=== PATIENT | female | born 1955 | race Caucasian/White ===

== ENCOUNTER 2021-06-11 14:25 | Outpatient (CLI) | payer MEDICARE, OTHER, SELFPAY ==
--- NOTE | ~2021-06-11 | MM_ITS ---
EXAMINATION: MM screening [facility] BI w [place] HISTORY: Screening mammogram TECHNIQUE: Craniocaudal and mediolateral oblique 3-D tomosynthesis images were obtained and synthetic 2-D images were generated. CAD analysis was submitted and interpreted. COMPARISON: 08/09/2019, 06/28/2018, 06/26/2017 BREAST PARENCHYMAL COMPOSITION: The breasts are almost entirely fatty. FINDINGS: There is no evidence of suspicious mass, calcification, or architectural distortion to sugg est malignancy in either breast. There has been no suspicious interval change. IMPRESSION: 1. No mammographic evidence of malignancy. 2. Recommend routine screening mammography in one year. BI-RADS Category 1: Negative Reviewed, dictated and finalized at location A.
== END 2021-06-11 14:26 | disposition home or self-care (01) ==
LOC: ANHIMG 14:28
PROVIDERS: PCP Physician Assistant; Visit Provider Physician Assistant
DX: Z12.31 Encounter for screening mammogram for malignant neoplasm of breast (principal)
CPT/HCPCS: 77063; 77067

== ENCOUNTER 2022-08-08 11:02 | Outpatient (CLI) | payer MEDICARE, OTHER, SELFPAY ==
--- NOTE | ~2022-08-08 | MM_ITS ---
EXAMINATION: MM screening [facility] BI w [place] HISTORY: Screening mammogram TECHNIQUE: Craniocaudal and mediolateral oblique 3-D tomosynthesis images were obtained and synthetic 2-D images were generated. CAD analysis was submitted and interpreted. COMPARISON: 06/11/2021, 08/09/2019, 06/28/2018 BREAST PARENCHYMAL COMPOSITION: The breasts are almost entirely fatty. FINDINGS: No suspicious mass, calcification, or architectural distortion are identified in either tiffany ast to suggest malignancy. There has been no suspicious interval change. IMPRESSION: 1. No mammographic evidence of malignancy. 2. Recommend routine screening mammography in one year. BI-RADS Category 1: Negative Reviewed, dictated and finalized at location A. [employer]
== END 2022-08-08 11:03 | disposition home or self-care (01) ==
LOC: ANHIMG 11:03
PROVIDERS: PCP Physician Assistant; Visit Provider Physician Assistant
DX: Z12.31 Encounter for screening mammogram for malignant neoplasm of breast (principal)
CPT/HCPCS: 77063; 77067

== ENCOUNTER 2022-09-29 01:20 | Day surgery (SDC) | payer MEDICARE, OTHER, SELFPAY ==
[2022-09-17 12:42] VITALS: BMI 33.7
--- NOTE | 2022-09-26 11:48 | PM.HPGS ---
History of Present Illness History of Present Illness Consent: Risks, benefits, and alternatives have been discussed and questions answered. Patient agrees to proceed with procedure. Chief complaint: hx of colon polyps Narrative: Lida Rader is a 67 year old female referred for colon cancer screening. Eight years ago she had a couple of adenomas removed. Review of Systems Review of Systems: All systems reviewed & are unremarkable except as noted in HPI and below PMFSH Past Medical History Medical History Anxiety Degenerative arthritis of knee, bilateral Rheumatoid arthritis Surgical History Surgical History History of arthroscopic knee surgery meniscectomy both knees Family History Family History Mother Hypertension Social History Social History Smoking packs per day: 0.5 Smoking cigarettes per day: 10.0 Years smoked: 20 Smoking pack-years: 10.00 Smoking status: Current every day smoker Tobacco type: cigarettes Additional smoking assessment comments: SMOKED FOR 20 YEARS, QUIT FOR 25 YEARS, SMOKING AGAIN FOR LAST YEAR Alcohol intake: never Substance use: never Substance use type: does not use Living arrangements: alone Occupation/Education: retired Gender identity (if verbalized by the patient): Female Spiritual care concerns: No Meds Home Medications and Allergies Home Medications Medication Instructions Recorded Confirmed Type aspirin 81 mg chewable tablet 81 mg PO DAILY 01/08/21 09/17/22 History atorvastatin 40 mg tablet 40 mg PO DAILY 01/08/21 09/17/22 History escitalopram oxalate 20 mg tablet 20 mg PO DAILY 01/08/21 09/17/22 History etanercept 50 mg/mL (1 mL) 50 mg subcut WEEKLY 01/08/21 09/17/22 History subcutaneous syringe (Enbrel) lorazepam 0.5 mg tablet (Ativan) 0.5 mg PO BID PRN Anxiety 01/08/21 09/17/22 History omega-3 fatty acids 1,000 mg 1,000 mg PO DAILY 01/08/21 09/17/22 History capsule (Fish Oil Concentrate) vitamins A,C,S-sajl-udxjpe 14,320 1 cap PO BID 01/08/21 09/17/22 History unit-226 mg-200 unit capsule (PreserVision AREDS) zolpidem 10 mg tablet 10 mg PO DAILY 01/08/21 09/17/22 History Allergies Allergy/AdvReac Type Severity Reaction Status Date / Time No Known Allergies Allergy Unknown Verified 09/29/22 06:23 Exam Const: General: alert Orientation/consciousness: patient oriented x3 Resp: Auscultation: clear to auscultation bilaterally Cardio: Rhythm: regular rhythm GI: GI Palp: Yes Soft to palpation and No Tenderness to palpation present (GI) Neuro: General: patient oriented x3 Assessment and Plan Assessment and plan (1) Colon cancer screening: Code(s): Z12.11 - Encounter for screening for malignant neoplasm of colon Status: Acute Assessment and Plan: Colonoscopy with possible biopsy or polypectomy or cautery or injection of substances.
[2022-09-29 06:24] VITALS: BP 127/60; PULSE 100; RESP 18; TEMP 36.1; O2SAT 97
[2022-09-29] MEDS: LACTATED RINGERS 1,000 ML 150 ML IV CONT (06:35)
--- NOTE | 2022-09-29 07:25 | WPDANESEPPF ---
Anes - Initial Pre Proc Eval Procedure: Operation Date: 09/29/22 07:30 Proposed Procedures p Screening Colonoscopy - Zaki Barnhart MD Date/Time: 09/29/22 07:25 Surgeon: Zaki Barnhart MD Pre Op Diagnosis: hx of colon polyps Patient Data Age: 67 Gender: F Height: 1.68 m Weight: 97 kg Last Vital Signs Temp 97 F L 09/29/22 06:24 Pulse 100 09/29/22 06:24 Resp 18 09/29/22 06:24 BP 127/60 09/29/22 06:24 Pulse Ox 97 09/29/22 06:24 O2 Del Method Room Air 09/29/22 06:24 Allergies Allergy/AdvReac Type Severity Reaction Status Date / Time No Known Allergies Allergy Unknown Verified 09/29/22 06:23 Home Medications Medication Instructions Recorded Confirmed Type aspirin 81 mg chewable tablet 81 mg PO DAILY 01/08/21 09/17/22 History atorvastatin 40 mg tablet 40 mg PO DAILY 01/08/21 09/17/22 History escitalopram oxalate 20 mg tablet 20 mg PO DAILY 01/08/21 09/17/22 History etanercept 50 mg/mL (1 mL) 50 mg subcut WEEKLY 01/08/21 09/17/22 History subcutaneous syringe (Enbrel) lorazepam 0.5 mg tablet (Ativan) 0.5 mg PO BID PRN Anxiety 01/08/21 09/17/22 History omega-3 fatty acids 1,000 mg 1,000 mg PO DAILY 01/08/21 09/17/22 History capsule (Fish Oil Concentrate) vitamins A,C,O-llcl-nxuvuy 14,320 1 cap PO BID 01/08/21 09/17/22 History unit-226 mg-200 unit capsule (PreserVision AREDS) zolpidem 10 mg tablet 10 mg PO DAILY 01/08/21 09/17/22 History Patient hx anesthesia problems: none Family hx anesthesia problems: none Results Review: All pre-operative results and documents have been reviewed as part of the pre-operative evaluation. [facility] Past Medical History Medical History Anxiety Degenerative arthritis of knee, bilateral Rheumatoid arthritis Surgical History Surgical History History of arthroscopic knee surgery meniscectomy both knees Family History Family History Mother Hypertension Social History Social History Smoking packs per day: 0.5 Smoking cigarettes per day: 10.0 Years smoked: 20 Smoking pack-years: 10.00 Smoking status: Current every day smoker Tobacco type: cigarettes Additional smoking assessment comments: SMOKED FOR 20 YEARS, QUIT FOR 25 YEARS, SMOKING AGAIN FOR LAST YEAR Alcohol intake: never Substance use: never Substance use type: does not use Living arrangements: alone Occupation/Education: retired Gender identity (if verbalized by the patient): Female Spiritual care concerns: No Anes - Eval Final PreProcedure Day of Procedure 09/29/22 07:25 Patient weight: obese Airway: Mallampati scale class II ASA classification: III Anesthesia type and monitoring: general GIVS and standard monitoring Results Review: All pre-operative results and documents have been reviewed as part of the pre-operative evaluation. Informed Consent: The patient's anesthetic plan and its attendant risks and benefits were discussed with the patient/family/POA. Questions were solicited and answers provided to the satisfaction of the patient/family/POA.
[2022-09-29 07:53] VITALS: BP 116/61; PULSE 79; RESP 21; O2SAT 95
[2022-09-29 08:03] VITALS: BP 136/67; PULSE 81; RESP 19; O2SAT 96
[2022-09-29 08:13] VITALS: BP 120/65; PULSE 74; RESP 23; O2SAT 97
== END 2022-09-29 08:17 | disposition home or self-care (01) ==
PROVIDERS: PCP Physician Assistant; Visit Provider Internal Medicine Gastroenterology
PROC: 0DJD8ZZ Inspection of Lower Intestinal Tract, Via Natural or Artificial Opening Endoscopic (ICD-10-PCS; CPT 45378; principal; 2022-09-29 07:30)
DX: Z12.11 Encounter for screening for malignant neoplasm of colon (principal); K63.5 Polyp of colon; K57.30 Diverticulosis of large intestine without perforation or abscess without bleeding; M06.9 Rheumatoid arthritis, unspecified; F41.9 Anxiety disorder, unspecified; Z79.82 Long term (current) use of aspirin; Z79.620 Long term (current) use of immunosuppressive biologic; F17.210 Nicotine dependence, cigarettes, uncomplicated; E66.9 Obesity, unspecified; Z68.34 Body mass index [BMI] 34.0-34.9, adult
CPT/HCPCS: 45380; 88305; J2704; J7120

== ENCOUNTER 2023-08-21 14:17 | Outpatient (CLI) | payer MEDICARE, OTHER, SELFPAY ==
--- NOTE | ~2023-08-21 | MM_ITS ---
EXAMINATION: MM screening [facility] w [facility] HISTORY: Screening TECHNIQUE: Craniocaudal and mediolateral oblique 3-D tomosynthesis images were obtained and synthetic 2-D images were generated. CAD analysis was submitted and interpreted. COMPARISON: Comparison to multiple prior studies sequentially, with oldest reviewed study dated 06/07. BREAST PARENCHYMAL COMPOSITION: The breasts are almost entirely fatty. FINDINGS: There is no evidence of suspicious mass, calcification, or architectural distortion to sugg est malignancy in either breast. There has been no suspicious interval change. IMPRESSION: 1. No mammographic evidence of malignancy. 2. Recommend routine screening mammography in one year. BI-RADS Category 1: Negative Reviewed, dictated and finalized at location A. [employer]
== END 2023-08-21 14:18 | disposition home or self-care (01) ==
LOC: ANHIMG 14:19
PROVIDERS: PCP Physician Assistant; Visit Provider Physician Assistant
DX: Z12.31 Encounter for screening mammogram for malignant neoplasm of breast (principal)
CPT/HCPCS: 77063; 77067

== ENCOUNTER 2024-11-28 08:02 | Outpatient (CLI) | payer MEDICARE, OTHER, SELFPAY ==
--- NOTE | ~2024-11-28 | MM_ITS ---
EXAMINATION: MM screening [facility] BI w tavon HISTORY: Screening TECHNIQUE: Craniocaudal and mediolateral oblique 3-D tomosynthesis images were obtained and synthetic 2-D images were generated. CAD analysis was submitted and interpreted. COMPARISON: 08/21/2023 and dating back to 08/09/2019 BREAST PARENCHYMAL COMPOSITION: There are scattered areas of fibroglandular density. FINDINGS: Punctate calcifications detected bilaterally, vascular in origin and benign in appearance. Punctate and bulky calcifications are detected bilaterally, stable and benign in appearance. Stable parenchymal pattern without suspicious microcalcifications, architectural distortion, discrete masses or significant asymmetry. IMPRESSION: 1. No mammographic evidence of malignancy. 2. Recommend routine screening mammography in one year. BI-RADS Category 2: Benign finding(s). Reviewed, dictated and finalized at location A.
--- OUTSIDE RECORDS SUMMARY | 2024-11-28 08:17 | XMS_ITS | Data Portability ---
Author Organization [facility], Main Office Address [address] [place] [address] Assessment No assessment recorded. Plan of Treatment Reminders Order Date Submit Date Provider Last Modified By Organization Details Last Modified Time Details Appointments None recorded. Lab HbA1c (hemoglobi n A1c), blood 2022 023 [facility], [address], [address], [place], [address], 4 09:51:26 BMP, serum or plasma 2022 023 [facility], [address], [address], [place], [address], 4 09:51:26 hepatic function panel, serum 2022 023 [facility], [address], [address], [place], [address], 4 09:51:26 lipid panel, serum 2022 023 [facility], [address], [address], [place], [address], 4 09:51:26 Referral None recorded. Procedures None recorded. Surgeries None recorded. Imaging None recorded. Medication Orders None recorded. Patient TargetsNo targets recorded. Patient Instructions Encounter Date Encounter Id Patient Instructions Last Modified By Organization Details Last Modified Time 05/21/2023 [id number] [email or web address] Not available 05/21 13:21:14 Reason for Referral None Reported. Results Created Date Observation Date Name Description Value Unit Range Abnormal Flag Note LastModifiedBy Organization Detail LastModifiedTime 08/05/20 21 08/06/2021 CBC (INCL UDES DIFF/ PLT) white blood cell count 12.2 thous and/u L 3.8-10 .8 high Not Available [address], [address], 08/06/2021 06:14:16 08/05/2008/06/2021 CBC (INCL UDES DIFF/ PLT) red blood cell count 4.35 maite on/uL 3.80-5 .10 normal Not Available [address], [address], 08/06/2021 06:14:16 08/05/2008/06/2021 CBC (INCL UDES DIFF/ PLT) hemoglobin 14.3 g/dL 11.7-1 5.5 normal Not Available [address], [address], 08/06/2021 06:14:16 08/05/2008/06/2021 CBC (INCL UDES DIFF/ PLT) hematocrit 43.2 % 35.0-4 5.0 normal Not Available [address], [address], 08/06/2021 06:14:16 08/05/2008/06/2021 CBC (INCL UDES DIFF/ PLT) MCV 99.3 fL 80.0-1 00.0 normal Not Available [address], [address], 08/06/2021 06:14:16 08/05/2008/06/2021 CBC (INCL UDES DIFF/ PLT) MCH 32.9 pg 27.0-3 3.0 normal Not Available [facility] [address], [address], 08/06/2021 06:14:16 08/05/20 21 08/06/2021 CBC (INCL UDES DIFF/ PLT) MCHC 33.1 g/dL 32.0-3 6.0 normal Not Available [address], [address], 08/06/2021 06:14:16 08/05/20 21 08/06/2021 CBC (INCL UDES DIFF/ PLT) RDW 12.3 % 11.0-1 5.0 normal Not Available [address], [address], 08/06/2021 06:14:16 08/05/20 21 08/06/2021 CBC (INCL UDES DIFF/ PLT) platelet count 241 thous and/u L 140-40 0 normal Not Available [address], [address], 08/06/2021 06:14:16 08/05/20 21 08/06/2021 CBC (INCL UDES DIFF/ PLT) MPV 10.9 fL 7.5-12 .5 normal Not Available [address], [address], 08/06/2021 06:14:16 08/05/20 21 08/06/2021 CBC (INCL UDES DIFF/ PLT) absolute neutrophils 6417 cells /uL 1500-7 800 normal Not Available [address], [address], 08/06/2021 06:14:16 08/05/20 21 08/06/2021 CBC (INCL UDES DIFF/ PLT) absolute lymphocytes 4575 cells /uL 850-39 00 high Not Available [address], [address], 08/06/2021 06:14:16 08/05/20 21 08/06/2021 CBC (INCL UDES DIFF/ PLT) absolute monocytes 817 cells /uL 200-95 0 normal Not Available [address], [place], [address], 08/06/2021 06:14:16 08/05/20 21 08/06/2021 CBC (INCL UDES DIFF/ PLT) absolute eosinophils 329 cells /uL 15-500 normal Not Available [facility] [address], [address], 08/06/2021 06:14:16 08/05/20 21 08/06/2021 CBC (INCL UDES DIFF/ PLT) absolute basophils 61 cells /uL 0-200 normal Not Available [facility] [address], [address], 08/06/2021 06:14:16 08/05/20 21 08/06/2021 CBC (INCL UDES DIFF/ PLT) neutrophils 52.6 % normal Not Available [facility] [address], [address], 08/06/2021 06:14:16 08/05/20 21 08/06/2021 CBC (INCL UDES DIFF/ PLT) lymphocytes 37.5 % normal Not Available [facility] [address], [address], 08/06/2021 06:14:16 08/05/20 21 08/06/2021 CBC (INCL UDES DIFF/ PLT) monocytes 6.7 % normal Not Available [facility] [address], [address], 08/06/2021 06:14:16 08/05/20 21 08/06/2021 CBC (INCL UDES DIFF/ PLT) eosinophils 2.7 % normal Not Available [facility] [address], [address], 08/06/2021 06:14:16 08/05/20 21 08/06/2021 CBC (INCL UDES DIFF/ PLT) basophils 0.5 % normal Not Available [address], [address], 08/06/2021 06:14:16 08/05/20 21 08/06/2021 HEPAT IC FUNCT ION PANEL protein, total 7.2 g/dL 6.1-8. 1 normal Not Available [address], [address], 08/06/2021 06:14:15 08/05/20 21 08/06/2021 HEPAT IC FUNCT ION PANEL albumin 4.0 g/dL 3.6-5. 1 normal Not Available [address], [address], 08/06/2021 06:14:15 08/05/20 21 08/06/2021 HEPAT IC FUNCT ION PANEL globulin 3.2 g/dL_ (calc ) 1.9-3. 7 normal Not Available [address], [address], 08/06/2021 06:14:15 08/05/20 21 08/06/2021 HEPAT IC FUNCT ION PANEL albumin/glob ulin ratio 1.3 (calc ) 1.0-2. 5 normal Not Available [address], [address], 08/06/2021 06:14:15 08/05/20 21 08/06/2021 HEPAT IC FUNCT ION PANEL bilirubin, total 0.8 mg/dL 0.2-1. 2 normal Not Available [address], [address], 08/06/2021 06:14:15 08/05/20 21 08/06/2021 HEPAT IC FUNCT ION PANEL bilirubin, direct 0.2 mg/dL < or = 0.2 normal Not Available [address], [address], 08/06/2021 06:14:15 08/05/20 21 08/06/2021 HEPAT IC FUNCT ION PANEL bilirubin, indirect 0.6 mg/dL _(brittany c) 0.2-1. 2 normal Not Available [facility] [employer] [address] [address] [place], [address], 08/06/2021 06:14:15 08/05/20 21 08/06/2021 HEPAT IC FUNCT ION PANEL alkaline phosphatase 86 U/L 37-153 normal Not Available [facility] [employer] [address] [address] [place], [address], 08/06/2021 06:14:15 08/05/20 21 08/06/2021 HEPAT IC FUNCT ION PANEL AST 17 U/L 10-35 normal Not Available [address], [address], 08/06/2021 06:14:15 08/05/20 21 08/06/2021 HEPAT IC FUNCT ION PANEL ALT 19 U/L 6-29 normal Not Available [address] [address] [place], [address], 08/06/2021 06:14:15 08/05/20 21 08/06/2021 HEMOG LOBIN A1C hemoglobin A1C 6.1 %_of_ total _HGB <5.7 high Not Available [facility] [employer] [address] [address] [place], [address], 08/06/2021 06:14:15 08/05/20 21 08/06/2021 BASIC METAB OLIC PANEL glucose 126 mg/dL 65-99 high Fasti ng refer ence inter davie For someo ne witho ut known diabe rocío, a gluco se value >125 mg/dL indic ates that they may have diabe rocío and this shoul d be confi rmed with a follo w-up test. Not Available [facility] [address] [address] [place], [address], 08/06/2021 06:14:14 08/05/20 21 08/06/2021 BASIC METAB OLIC PANEL urea nitrogen (BUN) 18 mg/dL 7-25 normal Not Available [address], [address], 08/06/2021 06:14:14 08/05/20 21 08/06/2021 BASIC METAB OLIC PANEL creatinine 0.68 mg/dL 0.50-0 .99 normal For patie nts >49 years of age, the refer ence limit for Creat inine is appro ximat aggie 13% highe r for peopl e ident ified as Afric an-Am ermias n. Not Available [address], [address], 08/06/2021 06:14:14 08/05/20 21 08/06/2021 BASIC METAB OLIC PANEL eGFR non-afr. russian 91 mL/mi n/1.7 3m2 > or = 60 normal Not Available [address], [address], 08/06/2021 06:14:14 08/05/20 21 08/06/2021 BASIC METAB OLIC PANEL eGFR 105 mL/mi n/1.7 3m2 > or = 60 normal Not Available [address], [address], 08/06/2021 06:14:14 08/05/20 21 08/06/2021 BASIC METAB OLIC PANEL BUN/creatini ne ratio not applic able (calc ) 6-22 Not Available [address], [address], 08/06/2021 06:14:14 08/05/20 21 08/06/2021 BASIC METAB OLIC PANEL sodium 142 mmol/ L 135-14 6 normal Not Available [address] [address] [place], [address], 08/06/2021 06:14:14 08/05/20 21 08/06/2021 BASIC METAB OLIC PANEL potassium 4.3 mmol/ L 3.5-5. 3 normal Not Available [address], [address], 08/06/2021 06:14:14 08/05/20 21 08/06/2021 BASIC METAB OLIC PANEL chloride 106 mmol/ L 98-110 normal Verif ied by repea t rosa isela sis. Not Available [address], [address], 08/06/2021 06:14:14 08/05/20 21 08/06/2021 BASIC METAB OLIC PANEL carbon dioxide 25 mmol/ L 20-32 normal Not Available [address], [address], 08/06/2021 06:14:14 08/05/20 21 08/06/2021 BASIC METAB OLIC PANEL calcium 9.0 mg/dL 8.6-10 .4 normal Not Available [address], [address], 08/06/2021 06:14:14 08/05/20 21 08/06/2021 LIPID PANEL WITH RATIO S cholesterol, total 139 mg/dL <200 normal Not Available [address], [address], 08/06/2021 06:14:14 08/05/20 21 08/06/2021 LIPID PANEL WITH RATIO S HDL cholesterol 40 mg/dL > or = 50 low Not Available [address], [address], 08/06/2021 06:14:14 08/05/20 21 08/06/2021 LIPID PANEL WITH RATIO S triglyceride s 186 mg/dL <150 high Not Available [address], [address], 08/06/2021 06:14:14 08/05/20 21 08/06/2021 LIPID PANEL WITH RATIO S LDL-choleste rol 74 mg/dL _(brittany c) normal Refer ence range : <100 Semaj able range <100 mg/dL for prima ry preve ntion ; <70 mg/dL for patie nts with CHD or diabe tic patie nts with > or = 2 CHD risk facto rs. LDL-C is now calcu lated using the Tasha n-Hop kins calcu michael n, which is a valid ated novel toryo heather mathewste r accur acy than the Fried eleno equat ion in the estim ation of LDL-C . Tasha wetzel SS et al. MARK. 2013; 310(1 9): 2061- 2068 (http ://ed ucati on.Qu jrYouNoodle. Enteye/f aq/FA Q164) Not Available [facility] [address] [place], [address], 08/06/2021 06:14:14 08/05/20 21 08/06/2021 LIPID PANEL WITH RATIO S chol/HDLC ratio 3.5 (calc ) <5.0 normal Not Available [facility] [address] [address] [place], [address], 08/06/2021 06:14:14 08/05/20 21 08/06/2021 LIPID PANEL WITH RATIO S LDL/HDL ratio 1.9 (calc ) Below avera ge Risk: <2.34 Posen ge Risk: 2.35- 4.12 Moder ate Risk: 4.13- 5.56 High Risk: >5.[address] [facility] [address] [place], [address], 08/06/2021 06:14:14 08/05/20 21 08/06/2021 LIPID PANEL WITH RATIO S non HDL cholesterol 99 mg/dL _(brittany c) <130 normal For patie nts with diabe rocío plus 1 major ASCVD risk facto r, treat ing to a non-H DL-C goal of <100 mg/dL (LDL- C of <70 mg/dL ) is consi isaac a lesvia pejose manuel c optio n. Not Available [address], [address], 08/06/2021 06:14:14 08/05/2008/06/2021 TSH+F REE T4 TSH 2.91 mIU/L 0.40-4 .50 normal Not Available [address], [address], 08/06/2021 06:14:13 08/05/20 21 08/06/2021 TSH+F REE T4 T4, free 1.0 NG/dL 0.8-1. 8 normal Not Available [facility] [address], [address], 08/06/2021 06:14:13 06/20/20 22 06/21/2022 CBC (INCL UDES DIFF/ PLT) white blood cell count 13.2 thous and/u L 3.8-10 .8 high Not Available [address], [address], 06/21/2022 08:32:22 06/20/20 22 06/21/2022 CBC (INCL UDES DIFF/ PLT) red blood cell count 4.44 maite on/uL 3.80-5 .10 normal Not Available [address], [address], 06/21/2022 08:32:22 06/20/20 22 06/21/2022 CBC (INCL UDES DIFF/ PLT) hemoglobin 15.1 g/dL 11.7-1 5.5 normal Not Available [address], [address], 06/21/2022 08:32:22 06/20/20 22 06/21/2022 CBC (INCL UDES DIFF/ PLT) hematocrit 45.1 % 35.0-4 5.0 high Not Available [address], [address], 06/21/2022 08:32:22 06/20/20 22 06/21/2022 CBC (INCL UDES DIFF/ PLT) MCV 101.6 fL 80.0-1 00.0 high Not Available [address], [address], 06/21/2022 08:32:22 06/20/20 22 06/21/2022 CBC (INCL UDES DIFF/ PLT) MCH 34.0 pg 27.0-3 3.0 high Not Available [address], [address], 06/21/2022 08:32:22 06/20/2006/21/2022 CBC (INCL UDES DIFF/ PLT) MCHC 33.5 g/dL 32.0-3 6.0 normal Not Available [address], [address], 06/21/2022 08:32:22 06/20/20 22 06/21/2022 CBC (INCL UDES DIFF/ PLT) RDW 12.6 % 11.0-1 5.0 normal Not Available [address], [address], 06/21/2022 08:32:22 06/20/20 22 06/21/2022 CBC (INCL UDES DIFF/ PLT) platelet count 233 thous and/u L 140-40 0 normal Not Available [address], [address], 06/21/2022 08:32:22 06/20/20 22 06/21/2022 CBC (INCL UDES DIFF/ PLT) MPV 10.4 fL 7.5-12 .5 normal Not Available [address], [address], 06/21/2022 08:32:22 06/20/20 22 06/21/2022 CBC (INCL UDES DIFF/ PLT) absolute neutrophils 6877 cells /uL 1500-7 800 normal Not Available [address], [address], 06/21/2022 08:32:22 06/20/2006/21/2022 CBC (INCL UDES DIFF/ PLT) absolute lymphocytes 5108 cells /uL 850-39 00 high Not Available [address], [address], 06/21/2022 08:32:22 06/20/2006/21/2022 CBC (INCL UDES DIFF/ PLT) absolute monocytes 937 cells /uL 200-95 0 normal Not Available [address], [address], 06/21/2022 08:32:22 06/20/2006/21/2022 CBC (INCL UDES DIFF/ PLT) absolute eosinophils 211 cells /uL 15-500 normal Not Available [address], [address], 06/21/2022 08:32:22 06/20/2006/21/2022 CBC (INCL UDES DIFF/ PLT) absolute basophils 66 cells /uL 0-200 normal Not Available [address], [address], 06/21/2022 08:32:22 06/20/2006/21/2022 CBC (INCL UDES DIFF/ PLT) neutrophils 52.1 % normal Not Available [address], [address], 06/21/2022 08:32:22 06/20/2006/21/2022 CBC (INCL UDES DIFF/ PLT) lymphocytes 38.7 % normal Not Available [address], [address], 06/21/2022 08:32:22 06/20/2006/21/2022 CBC (INCL UDES DIFF/ PLT) monocytes 7.1 % normal Not Available [address], [address], 06/21/2022 08:32:22 06/20/20 22 06/21/2022 CBC (INCL UDES DIFF/ PLT) eosinophils 1.6 % normal Not Available [address], [address], 06/21/2022 08:32:22 06/20/20 22 06/21/2022 CBC (INCL UDES DIFF/ PLT) basophils 0.5 % normal Not Available [address], [address], 06/21/2022 08:32:22 06/20/20 22 06/21/2022 HEPAT IC FUNCT ION PANEL protein, total 7.1 g/dL 6.1-8. 1 normal Not Available [address], [address], 06/21/2022 08:32:21 06/20/20 22 06/21/2022 HEPAT IC FUNCT ION PANEL albumin 4.3 g/dL 3.6-5. 1 normal Not Available [address], [address], 06/21/2022 08:32:21 06/20/20 22 06/21/2022 HEPAT IC FUNCT ION PANEL globulin 2.8 g/dL_ (calc ) 1.9-3. 7 normal Not Available [address], [address], 06/21/2022 08:32:21 06/20/20 22 06/21/2022 HEPAT IC FUNCT ION PANEL albumin/glob ulin ratio 1.5 (calc ) 1.0-2. 5 normal Not Available [address], [address], 06/21/2022 08:32:21 06/20/20 22 06/21/2022 HEPAT IC FUNCT ION PANEL bilirubin, total 0.8 mg/dL 0.2-1. 2 normal Not Available [address], [address], 06/21/2022 08:32:21 06/20/20 22 06/21/2022 HEPAT IC FUNCT ION PANEL bilirubin, direct 0.2 mg/dL < or = 0.2 normal Not Available [address], [address], 06/21/2022 08:32:21 06/20/20 22 06/21/2022 HEPAT IC FUNCT ION PANEL bilirubin, indirect 0.6 mg/dL _(brittany c) 0.2-1. 2 normal Not Available [address], [address], 06/21/2022 08:32:21 06/20/20 22 06/21/2022 HEPAT IC FUNCT ION PANEL alkaline phosphatase 80 U/L 37-153 normal Not Available [facility] [address], [address], 06/21/2022 08:32:21 06/20/20 22 06/21/2022 HEPAT IC FUNCT ION PANEL AST 22 U/L 10-35 normal Not Available [address], [address], 06/21/2022 08:32:21 06/20/20 22 06/21/2022 HEPAT IC FUNCT ION PANEL ALT 24 U/L 6-29 normal Not Available [address], [address], 06/21/2022 08:32:21 06/20/20 22 06/21/2022 HEMOG LOBIN A1C hemoglobin A1C 6.0 %_of_ total _HGB <5.7 high For someo ne witho ut known diabe rocío, a hemog lobin A1c value betwe en 5.7% and 6.4% is consi stent with predi abete s and shoul d be confi rmed with a follo w-up test. For someo ne with known diabe rocío, a value <7% indic ates that their diabe rocío is well contr olled . A1c targe ts shoul d be indiv idual ized based on durat ion of diabe rocío, age, comor bid condi tions , and other consi derat ions. This assay resul t is consi stent with an incre ased risk of diabe rocío. Curre ntly, no conse nsus exist s regar ding use of hemog lobin A1c for diagn osis of diabe rocío for child jose manuel. Not Available [facility] [address] [address] [place], [address], 06/21/2022 08:32:21 06/20/2006/21/2022 BASIC METAB OLIC PANEL glucose 105 mg/dL 65-99 high Fasti ng refer ence inter davie For someo ne witho ut known diabe rocío, a gluco se value betwe en 100 and 125 mg/dL is consi stent with predi abete s and shoul d be confi rmed with a follo w-up test. Not Available [facility] [address] [address] [place], [address], 06/21/2022 08:32:20 06/20/2006/21/2022 BASIC METAB OLIC PANEL urea nitrogen (BUN) 18 mg/dL 7-25 normal Not Available [facility] [address] [address] [place], [address], 06/21/2022 08:32:20 06/20/2006/21/2022 BASIC METAB OLIC PANEL creatinine 0.63 mg/dL 0.50-1 .05 normal Not Available [facility] [address] [address] [place], [address], 06/21/2022 08:32:20 06/20/2006/21/2022 BASIC METAB OLIC PANEL eGFR 97 mL/mi n/1.7 3m2 > or = 60 normal The eGFR is based on the CKD-E PI 2020 equat ion. To calcu late the new eGFR from a previ ous Creat inine or Cysta jayda C resul t, go to https ://aki goldman.raf johnson.o lalito/pr ofess ional s/ kdoqi /gfr% 5Fcal culat or Not Available [address] [address] [place], [address], 06/21/2022 08:32:20 06/20/20 22 06/21/2022 BASIC METAB OLIC PANEL BUN/creatini ne ratio not applic able (calc ) 6-22 Not Available [address] [place], [address], 06/21/2022 08:32:20 06/20/20 22 06/21/2022 BASIC METAB OLIC PANEL sodium 143 mmol/ L 135-14 6 normal Not Available [address] [address] [place], [address], 06/21/2022 08:32:20 06/20/20 22 06/21/2022 BASIC METAB OLIC PANEL potassium 4.3 mmol/ L 3.5-5. 3 normal Not Available [address] [address] [place], [address], 06/21/2022 08:32:20 06/20/20 22 06/21/2022 BASIC METAB OLIC PANEL chloride 107 mmol/ L 98-110 normal Not Available [address] [address] [place], [address], 06/21/2022 08:32:20 06/20/2006/21/2022 BASIC METAB OLIC PANEL carbon dioxide 29 mmol/ L 20-32 normal Not Available [address] [address] [place], [address], 06/21/2022 08:32:20 06/20/20 22 06/21/2022 BASIC METAB OLIC PANEL calcium 9.3 mg/dL 8.6-10 .4 normal Not Available [address] [address] [place], [address], 06/21/2022 08:32:20 06/20/20 22 06/21/2022 LIPID PANEL WITH RATIO S cholesterol, total 116 mg/dL <200 normal Not Available [address] [address] [place], [address], 06/21/2022 08:32:20 06/20/20 22 06/21/2022 LIPID PANEL WITH RATIO S HDL cholesterol 38 mg/dL > or = 50 low Not Available [address] [address] [place], [address], 06/21/2022 08:32:20 06/20/20 22 06/21/2022 LIPID PANEL WITH RATIO S triglyceride s 122 mg/dL <150 normal Not Available [address] [address] [place], [address], 06/21/2022 08:32:20 06/20/2006/21/2022 LIPID PANEL WITH RATIO S LDL-choleste rol 58 mg/dL _(brittany c) normal Refer ence range : <100 Semaj able range <100 mg/dL for prima ry preve ntion ; <70 mg/dL for patie nts with CHD or diabe tic patie nts with > or = 2 CHD risk facto rs. LDL-C is now calcu lated using the Tasha n-Hop kins calcu latdarcy n, which is a valid ated novel metho d provi ding surendra r accur acy than the Fried eleno equat ion in the estim ation of LDL-C . Tasha wetzel SS et al. MARK. 2013; 310(1 9): 2061- 2068 (http ://ed ucati on.Qu estDi prasanth tics. com/f aq/FA Q164) Not Available [facility] [address] [address] [place], [address], 06/21/2022 08:32:20 06/20/20 22 06/21/2022 LIPID PANEL WITH RATIO S chol/HDLC ratio 3.1 (calc ) <5.0 normal Not Available [address], [address], 06/21/2022 08:32:20 06/20/20 22 06/21/2022 LIPID PANEL WITH RATIO S LDL/HDL ratio 1.5 (calc ) Below avera ge Risk: <2.34 Posen ge Risk: 2.35- 4.12 Moder ate Risk: 4.13- 5.56 High Risk: >5.57 Not Available [address], [address], 06/21/2022 08:32:20 06/20/2006/21/2022 LIPID PANEL WITH RATIO S non HDL cholesterol 78 mg/dL _(brittany c) <130 normal For patie nts with diabe rocío plus 1 major ASCVD risk facto r, treat ing to a non-H DL-C goal of <100 mg/dL (LDL- C of <70 mg/dL ) is consi dered a thera peuti c optio n. Not Available [address], [address], 06/21/2022 08:32:20 06/20/2006/21/2022 TSH+F REE T4 TSH 1.30 mIU/L 0.40-4 .50 normal Not Available [address] [place], [address], 06/21/2022 08:32:19 06/20/2006/21/2022 TSH+F REE T4 T4, free 1.1 NG/dL 0.8-1. 8 normal Not Available [address], [address], 06/21/2022 08:32:19 02/12/20 24 02/12/2024 LIPID PANEL WITH RATIO S cholesterol, total 129 mg/dL <200 normal Not Available [facility] [address] [place], [address], 02/12/2024 22:22:36 02/12/20 24 02/12/2024 LIPID PANEL WITH RATIO S HDL cholesterol 41 mg/dL > or = 50 low Not Available [facility] [address] [place], [address], 02/12/2024 22:22:36 02/12/20 24 02/12/2024 LIPID PANEL WITH RATIO S triglyceride s 112 mg/dL <150 normal Not Available [facility] [address] [address] [place], [address], 02/12/2024 22:22:36 02/12/20 24 02/12/2024 LIPID PANEL WITH RATIO S LDL-choleste rol 68 mg/dL _(brittany c) normal Refer ence range : <100 Semaj able range <100 mg/dL for prima ry preve ntion ; <70 mg/dL for patie nts with CHD or diabe tic patie nts with > or = 2 CHD risk facto rs. LDL-C is now calcu lated using the Tasha wetzel-Hop oxana rodriguez n, which is a valid ated novel angela magana accur acy than the Fried eleno equat ion in the estim ation of LDL-C . Tasha wetzel SS et al. MARK. 2013; 310(1 9): 2061- 2068 (http ://ed ucati on.Qu Darryn rader tics. com/f aq/FA Q164) Not Available [facility] [address] [address], [place], [address], 02/12/2024 22:22:36 02/12/20 24 02/12/2024 LIPID PANEL WITH RATIO S chol/HDLC ratio 3.1 (calc ) <5.0 normal Not Available [facility] [address] [place], [address], 02/12/2024 22:22:36 02/12/20 24 02/12/2024 LIPID PANEL WITH RATIO S LDL/HDL ratio 1.7 (calc ) Below avera ge Risk: <2.34 Posen ge Risk: 2.35- 4.12 Moder ate Risk: 4.13- 5.56 High Risk: >5.57 Not Available [facility] [address] [address] [place], [address], 02/12/2024 22:22:36 02/12/20 24 02/12/2024 LIPID PANEL WITH RATIO S non HDL cholesterol 88 mg/dL _(brittany c) <130 normal For patie nts with diabe rocío plus 1 major ASCVD risk facto r, treat ing to a non-H DL-C goal of <100 mg/dL (LDL- C of <70 mg/dL ) is heidi mclaughlin c optio n. Not Available [facility] [address] [place], [address], 02/12/2024 22:22:36 02/12/20 24 02/12/2024 BASIC METAB OLIC PANEL glucose 126 mg/dL 65-99 high Fasti ng refer ence inter davie For someo ne witho ut known diabe rocío, a gluco se value >125 mg/dL indic ates that they may have diabe rocío and this shoul d be confi rmed with a follo w-up test. Not Available [facility] [address] [address] [place], [address], 02/12/2024 22:22:38 02/12/20 24 02/12/2024 BASIC METAB OLIC PANEL urea nitrogen (BUN) 22 mg/dL 7-25 normal Not Available [facility] [address] [address] [place], [address], 02/12/2024 22:22:38 02/12/20 24 02/12/2024 BASIC METAB OLIC PANEL creatinine 0.58 mg/dL 0.50-1 .05 normal Not Available [facility] [address] [address] [place], [address], 02/12/2024 22:22:38 02/12/20 24 02/12/2024 BASIC METAB OLIC PANEL eGFR 98 mL/mi n/1.7 3m2 > or = 60 normal Not Available [address], [address], 02/12/2024 22:22:38 02/12/20 24 02/12/2024 BASIC METAB OLIC PANEL BUN/creatini ne ratio SEE NOTE: (calc ) 6-22 Not Repor reece: BUN and Creat inine are withi n refer ence range . Not Available [address], [address], 02/12/2024 22:22:38 02/12/20 24 02/12/2024 BASIC METAB OLIC PANEL sodium 139 mmol/ L 135-14 6 normal Not Available [address], [address], 02/12/2024 22:22:38 02/12/20 24 02/12/2024 BASIC METAB OLIC PANEL potassium 4.1 mmol/ L 3.5-5. 3 normal Not Available [address], [address], 02/12/2024 22:22:38 02/12/20 24 02/12/2024 BASIC METAB OLIC PANEL chloride 105 mmol/ L 98-110 normal Not Available [address], [address], 02/12/2024 22:22:38 02/12/20 24 02/12/2024 BASIC METAB OLIC PANEL carbon dioxide 27 mmol/ L 20-32 normal Not Available [address], [address], 02/12/2024 22:22:38 02/12/20 24 02/12/2024 BASIC METAB OLIC PANEL calcium 9.1 mg/dL 8.6-10 .4 normal Not Available [address] [address] [place], [address], 02/12/2024 22:22:38 02/12/20 24 02/12/2024 HEMOG LOBIN A1C hemoglobin A1C 6.3 %_of_ total _HGB <5.7 high For someo ne witho ut known diabe rocío, a hemog lobin A1c value betwe en 5.7% and 6.4% is consi stent with predi abete s and shoul d be confi rmed with a follo w-up test. For someo ne with known diabe rocío, a value <7% indic ates that their diabe rocío is well contr olled . A1c targe ts shoul d be indiv idual ized based on durat ion of diabe rocío, age, comor bid condi tions , and other consi derat ions. This assay resul t is consi stent with an incre ased risk of diabe rocío. Curre ntly, no conse nsus exist s regar ding use of hemog lobin A1c for diagn osis of diabe rocío for child jose manuel. This test was perfo rmed on the Shaheed enzo c503 platf orm. Effec tive , a faye e in test platf orms from the [facility] t[facility] to the Shaheed enzo c503 may have shift ed HbA1c resul ts lisha red to histo rical resul ts. Based on labor atory valid ation testi ng condu cted at [facility] , the [facility]heed platf orm relat gabriel to the [employer] platf orm had an avera ge incre ase in HbA1c value of < or = 0.3%. This diffe rence is withi n accep reece varia bilit y estab lishe d by the Natio nal [employer] hemog lobin Stand ardiz ation Progr am. Note that not all indiv idual s will have had a shift in their resul ts and direc t lisha rison s betwe en histo rical and curre nt resul ts for testi ng condu cted on diffe rent platf orms is not recom lennie d. Not Available [facility] [address] [place] [address], [address], 02/12/2024 22:22:39 02/12/20 24 02/12/2024 HEPAT IC FUNCT ION PANEL protein, total 6.8 g/dL 6.1-8. 1 normal Not Available [address], [address], 02/12/2024 22:22:40 02/12/20 24 02/12/2024 HEPAT IC FUNCT ION PANEL albumin 4.0 g/dL 3.6-5. 1 normal Not Available [address], [address], 02/12/2024 22:22:40 02/12/20 24 02/12/2024 HEPAT IC FUNCT ION PANEL globulin 2.8 g/dL_ (calc ) 1.9-3. 7 normal Not Available [address], [address], 02/12/2024 22:22:40 02/12/20 24 02/12/2024 HEPAT IC FUNCT ION PANEL albumin/glob ulin ratio 1.4 (calc ) 1.0-2. 5 normal Not Available [address], [address], 02/12/2024 22:22:40 02/12/20 24 02/12/2024 HEPAT IC FUNCT ION PANEL bilirubin, total 0.8 mg/dL 0.2-1. 2 normal Not Available [address], [address], 02/12/2024 22:22:40 02/12/20 24 02/12/2024 HEPAT IC FUNCT ION PANEL bilirubin, direct 0.2 mg/dL < or = 0.2 normal Not Available [address], [address], 02/12/2024 22:22:40 02/12/20 24 02/12/2024 HEPAT IC FUNCT ION PANEL bilirubin, indirect 0.6 mg/dL _(brittany c) 0.2-1. 2 normal Not Available [address] [address] [place], [address], 02/12/2024 22:22:40 02/12/20 24 02/12/2024 HEPAT IC FUNCT ION PANEL alkaline phosphatase 77 U/L 37-153 normal Not Available [address] [address] [place], [address], 02/12/2024 22:22:40 02/12/20 24 02/12/2024 HEPAT IC FUNCT ION PANEL AST 15 U/L 10-35 normal Not Available [address] [address] [place], [address], 02/12/2024 22:22:40 02/12/20 24 02/12/2024 HEPAT IC FUNCT ION PANEL ALT 19 U/L 6-29 normal Not Available [address] [address] [place], [address], 02/12/2024 22:22:40 06/18/20 21 06/11/2021 MAMMO , scree leonidas, digit al, bilat eral No observ ation record ed. [id number] [facility] (Medical Records) [address] [facility] [address] [place] [address], [address], 11/05/2022 17:31:13 12/04/19 23 08/08/2022 MAMMO , elijah freyg, digit al, bilat eral No observ ation record ed. [email or web address] [place] [address] Rad[address] [facility], [place], [address], 12/04/2022 15:32:16 01/24/20 23 09/29/2022 colon oscop y scremakenna freyg (PROC ) No observ ation record ed. [email or web address] [facility] (Medical Records) [address] [facility] [address] [place] [address], [address], 05/26/2023 17:49:59 08/24/20 23 08/21/2023 MAMMO , scree leonidas, melanie al, bilat eral No observ ation record ed. [facility] [address], [place], [address], 09/22/2023 09:21:18 Result Notes None recorded. Problems Name Problem SNOMED Code Status Onset Date Resolution Date Notes Provider Name and Address Organization Details Recorded Time Leukocytosis 248721344 Active 2021 Not Available [facility] 4 17:46:30 Blood glucose outside reference range 477287753 Active Not Available [facility] 4 17:46:30 Insomnia 491478939 Active Not Available [facility] 4 17:46:30 Anxiety 21122075 Active Not Available [facility] 4 17:46:30 Hyperlipidemi a 15126837 Active Not Available [facility] 4 17:46:30 Rheumatoid arthritis 36088079 Active Not Available [facility] 4 17:46:30 Mild major depression 22601869 Active Not Available [facility] 4 17:46:30 Impaired glucose tolerance 9000085 Active 2021 Not Available [facility] 4 17:46:30 Acute urinary tract infection 376602875 Active 2022 Not Available [facility] 4 17:46:30 Psoriasis 0393780 Active 2022 Not Available [facility] 4 17:46:30 Problem Notes None recorded. Procedures Surgical History Date Name Laterality Status Provider Name and Address Organization Details Recorded Time Hernia Repair completed Not Available [facility] 11/05/2022 17:28:46 Orthopedic Surgery completed Not Available [facility] 11/05/2022 17:28:46 Imaging Results Imaging Date Name Status LastModified by Organiz ation Details LastModified Time 06/11/2021 MAMMO, screening, digital, bilateral completed [id number] [facility] (Medical Records) [address] [facility] [address], [place], [address], 11/05/2022 17:31:13 08/08/2022 MAMMO, screening, digital, bilateral completed [address] Radiology [address], [place], [address], 12/04/2022 15:32:16 09/29/2022 colonoscopy screening (PROC) completed [address] (Medical Records) [address] [facility] [address], [place], [address], 05/26/2023 17:49:59 08/21/2023 MAMMO, screening, digital, bilateral completed [address] [facility] [address], [place], [address], 09/22/2023 09:21:18 Procedure Notes None recorded. Medical Equipment None Reported. Allergies No known drug allergies Medications Name Sig Start Date Stop Date Status Note LastModified by Organization Details LastModified Time atorvastati n 40 mg tablet TAKE 1 TABLET DAILY 2023 active Not Available Not Available Not Avai lable Ceftin 500 mg tablet Take 1 tablet every 12 hours by oral route. active Not Available Not Available No t Available Macrobid 100 mg capsule Take 1 capsule every 12 hours by oral route. 05/21 completed Not Available Not Available Not Available amoxicillin 875 mg tablet TAKE 1 TABLET BY MOUTH TWICE DAILY UNTIL ALL TAKEN 07/14 completed Not Available Not Available Not Available betamethaso ne dipropionat e 0.05 % topical cream APPLY THIN LAYER TO AFFECTED AREA(S) TOPICALLY ONCE DAILY NEEDED active Not Available Not Available No t Available Ativan 0.5 mg tablet TAKE 1 TABLET TWICE A DAY NEEDED active Not Available Not Available No t Available zolpidem 10 mg tablet TAKE 1 TABLET AT BEDTIME active Not Available Not Available No t Available amoxicillin 875 mg-potassiu m clavulanate 125 mg tablet Take 1 tablet every 12 hours by oral route. 12/17 completed Not Available Not Available Not Available escitalopra m 20 mg tablet TAKE 1 TABLET DAILY active Not Available Not Available No t Available Fish Oil 1200mg daily 2014 active Not Available Not Available Not Avai lable Enbrel SureClick 50 mg/mL (1 mL) subcutaneou s pen injector Inject every week by sub-q route for 84 days. active Not Available Not Available No t Available Vitals Date Recorded Body mass index (BMI) Body height Oxygen saturation Oxygen saturation in Arterial blood by Pulse oximetry Heart rate Body temperature Body weight Systolic blood pressure Diastolic blood pressure Systolic blood pressure Diastolic blood pressure Provider Name and Address Organization Details Last Updated DateTime 1 35.4 kg/m2 167.64 cm 96 % 96 % 81 /min 97.8 [degF] 86898.8 8 g 120 mm[Hg] 70 mm[Hg] 110 mm[Hg] 80 mm[Hg] Not Available [facility] 3 17:29:22 Date Recorded Body mass index (BMI) Body height Oxygen saturation Oxygen saturation in Arterial blood by Pulse oximetry Heart rate Body temperature Body weight Systolic blood pressure Diastolic blood pressure Provider Name and Address Organization Details Last Updated DateTime 1 35.1 kg/m2 167.64 cm 96 % 96 % 98 /min 97.2 [degF] 13940.2 6 g 122 mm[Hg] 70 mm[Hg] Not Available [facility] 3 17:29:22 Date Recorded Body mass index (BMI) Body height Oxygen saturation Oxygen saturation in Arterial blood by Pulse oximetry Heart rate Respiratory rate Body temperature Body weight Systolic blood pressure Diastolic blood pressure Provider Name and Address Organization Details Last Updated DateTime 2 35.2 kg/m2 167.64 cm 97 % 97 % 80 /min 16 /min 97.6 [degF] 95104.1 4 g 140 mm[Hg] 80 mm[Hg] Not Available [facility] 3 17:29:22 Date Recorded Body height Body mass index (BMI) Body weight Body temperature Heart rate Oxygen saturation Oxygen saturation in Arterial blood by Pulse oximetry Systolic blood pressure Diastolic blood pressure Provider Name and Address Organization Details Last Updated DateTime 3 167.64 cm 36.3 kg/m2 160844. 28 g 98.3 [degF] 101 /min 97 % 97 % 128 mm[Hg] 60 mm[Hg] Sasha Gómez RN [place] - [facility] [employer] 12:43:40 Social History Question Answer Notes LastModified by Organizat ion Details LastModified Time Tobacco Smoking Status Current Every Day Smoker Not Available [facility] 11/05/2022 17:28:43 Do You Have An Advance Directive? Yes [id number] Information not available 11/05/2022 What Is Your Level Of Alcohol Consumption? Moderate Weekly MIGRATION.940391 [id number] Information not available 11/05/2022 Are You Blind Or Do You Have Difficulty Seeing? No MIGRATION.298585 5499 Information not available 11/05/2022 What Is Your Level Of Caffeine Consumption? Heavy Daily MIGRATION.515915 4406 Information not available 11/05/2022 How Much Tobacco Do You Chew? None MIGRATION.064534 0386 Information not available 11/05/2022 In The 14 Days Before Symptom Onset, Have You Had Close Contact With A Laboratory-confir med COVID-19 While That Case Was Ill? No MIGRATION.646014 0755 Information not available 11/05/2022 In The 14 Days Before Symptom Onset, Have You Had Close Contact With A Person Who Is Under Investigation For COVID-19 While That Person Was Ill? No MIGRATION.281807 8643 Information not available 11/05/2022 Are You Deaf Or Do You Have Serious Difficulty Hearing? No MIGRATION.892083 9562 Information not available 11/05/2022 What Type Of Diet Are You Following? REGULAR MIGRATION.469015 9681 Information not available 11/05/2022 Which Illicit Or Recreational Drugs Have You Used? None MIGRATION.937165 1664 Information not available 11/05/2022 Do You Or Have You Ever Used E-cigarettes Or Vape? 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 11-15yearssinc elastcigarette MIGRATION.016856 2461 Information not available 11/05/2022 Advance Directive- Providers Has Reviewed Directive And Consents To Follow Them (insert Provider Name With Any Objectives In Notes Field) No MIGRATION.752521 1413 Information not available 11/05/2022 How Many Children Do You Have? 2 MIGRATION.155272 5621 Information not available 11/05/2022 What Is Your Current Pack Years? 20-29packyears MIGRATION.352068 8955 Information not available 11/05/2022 At What Age Did You Start Smoking Tobacco? 29 MIGRATION.825578 8695 Information not available 11/05/2022 Do You Or Have You Ever Used Smokeless Tobacco? Never Used Smokeless Tobacco MIGRATION.078949 6436 Information not available 11/05/2022 How Much Tobacco Do You Smoke? 0.5 PPD MIGRATION.076880 5144 Information not available 11/05/2022 Do You Use Sunscreen Routinely? Yes MIGRATION.349010 9412 Information not available 11/05/2022 Sex: Unknown Functional Status Question Answer Note LastModified by [employer] Details LastModified Time Do you have difficulty walking or climbing stairs? No MIGRATION.[id number] 26 Information not available 11/05/2022 Do you have difficulty doing errands alone? No MIGRATION.84281754 26 Information not available 11/05/2022 Do you have difficulty dressing or bathing? No MIGRATION.17690211 26 Information not available 11/05/2022 What is your exercise level? Occasional MIGRATION.[id number] 26 Information not available 11/05/2022 Mental Status Question Answer Note LastModified by [employer] Details LastModified Time Do you have difficulty concentrating, remembering or making decisions? No MIGRATION.[id number] 6 Information not available 11/05/2022 Family History Relationship Description Onset Age of this Age Resolved Age Notes LastModified by Organization Details LastModified Time Mother Hyperlipidem ia 73 MIGRATION.642 [id number] Not available 11/05/2022 17:28:46 Mother Hypertensive disorder 73 MIGRATION.332 [id number] Not available 11/05/2022 17:28:46 Father Hyperlipidem ia MIGRATION.400 [id number] Not available 11/05/2022 17:28:46 Father Malignant tumor of prostate MIGRATION.[id number] Not available 11/05/2022 17:28:46 Sister Rheumatoid arthritis MIGRATION.873 [id number] Not available 11/05/2022 17:28:46 Medical History Condition Response SKIN PROBLEMS Y ANXIETY DISORDER Y OBESITY Y DEPRESSION (INCLUDING POST ) Y BOWEL PROBLEMS Y HIGH CHOLESTEROL / HYPERLIPIDEMIA Y Gynecological History Statement/Question Response Date of Last Pap Date of Last Mammogram 06/11/2021 Date of Last Colonoscopy Obstetrics History GPAL:G 3 P 0 0 0 2 Type Value Living 2 Total 3 Immunizations Vaccine Type Date Status Note Provider Nam e and Address Organization Details Recorded Time influenza, unspecified formulation 5 completed Not Available [facility] 09/30/2023 17:46:30 TST-PPD intradermal 5 completed Not Available [facility] 09/30/2023 17:46:30 zoster live 5 completed Not Available [facility] 09/30/2023 17:46:30 Pneumococcal Conjugate, unspecified formulation 5 completed Not Available [facility] 09/30/2023 17:46:30 tetanus toxoid, unspecified formulation 2 completed Not Available [facility] 09/30/2023 17:46:30 Past Encounters Encounter ID Performer Location Encounter Start Date Encounter Closed Date Diagnosis/Indication Diagnosis SNOMED-CT Code Diagnosis ICD10 Code Diagnosis Note [id number] [facility] [place] [address] [place] [address] 01/07/2021 00:00:00 01/18/2021 09:02:40 [id number] [facility] [place] [address] [place] [address] 08/08/2021 00:00:00 09/03/2021 23:29:57 [id number] [facility] [place] [address] [place] [address] 07/14/2022 00:00:00 07/24/2022 15:23:23 [id number] ELIZABETH Luna [facility] [place] [address] [place] [address] 05/21/2023 12:23:50 05/21/2023 13:17:12 Impaired glucose tolerance 3152141 R73.03 6% on labs labs. due for updated lab Long-term drug therapy 541665069 Z79.899 routine bmp and LFT due. Mild major depression 87 111135 F32.0 stable on lexapro 20mg daily Anxiety 40101198 F41.9 stable on lexapro 20mg daily. PRN lorazepam Hyperlipidemia 32243602 E78.5 stable, with chronicall y low HDL. on atorvastat in 40mg daily and stable on LDL. Psoriasis 3902375 L40.9 stable on enbrel injection. Health Concerns Section Related Observation LastModified by Organization Detai ls LastModified Time None Recorded Concern Status LastModified by Organization Details LastModified Time None Recorded Advance Directives Directive Y: Payers Encounter Date Sequence Insurance Name Policy Number Policy Feliz Covered Member ID Feliz Member ID Guarantor Name 05/21/2023 1 [place] Lida A Prasanth [id number] Ldia Rader 05/21/2023 2 [employer] - FOR LIFE (MEDICARE SUPPLEMENT) Lida Riky Prasanth [id number] Lida Riky Prasanth Notes Date Note Type Note Provider Name and Address Organization Details Recorded Time 021 text/h tml Anxiety/DepressionReported bypatient.Severity:denies suicidal ideations; able to maintain relationships; does not interfere with activities of daily living Context:no major life stressors Associated Symptoms:denies homicidal ideations; no significant weight gain; no significant weight loss; no visual/auditory hallucinations; no delusions; no shortness of breath; mood good; no anxiety; no crying spells; no panic; no isolation; sleeping well; appetite good; energy good; no apathy; maintaining functionalityNotes:taking lexapro and lorazepamHyperlipidemiaReported bypatient.Notes:on statin therapyInsomniaReported bypatient.Notes:stable on ambien therapy. Not Available [facility] [employer] 01/18/2021 09:02:40 021 text/h tml Anxiety/DepressionReported bypatient.Severity:denies suicidal ideations; able to maintain relationships; does not interfere with activities of daily living Context:no major life stressors Associated Symptoms:denies homicidal ideations; no significant weight gain; no significant weight loss; no visual/auditory hallucinations; no delusions; no shortness of breath; mood good; no anxiety; no crying spells; no panic; no isolation; sleeping well; appetite good; energy good; no apathy; maintaining functionalityHyperlipidemiaReported bypatient.Control:usually well controlled; improving; at goal Compliance:compliant; compliant with diet; exercises Complications:no coronary artery disease; no peripheral artery disease; no cardiovascular disease Not Available [facility] 09/03/2021 23:29:57 022 text/h tml Anxiety/DepressionReported bypatient.Quality:doesnt matter time of day. Severity:denies suicidal ideations; able to maintain relationships; does not interfere with activities of daily living Duration:symptoms lasting over 2 weeks Onset/Timing:still present Context:major life stressors Modifying Factors:medications as directed Associated Symptoms:denies homicidal ideations; no significant weight gain; no significant weight loss; no visual/auditory hallucinations; no delusions; no shortness of breath; mood good; no anxiety; no crying spells; no panic; no isolation; sleeping well; appetite good; energy good; no apathy; maintaining functionality HyperlipidemiaReported bypatient.Duration:chronic Control:usually well controlled Current Therapy:currently taking: (atorvastatin 40mg) Compliance:compliant; compliant with diet; exercises Complications:no coronary artery disease; no peripheral artery disease; no cardiovascular disease Risk Factors:smoking Not Available [facility] 07/24/2022 15:23:23 023 text/h tml Anxiety/DepressionReported bypatient.Severity:denies suicidal ideations; able to maintain relationships; does not interfere with activities of daily living Context:no major life stressors Associated Symptoms:denies homicidal ideations; no significant weight gain; no significant weight loss; no visual/auditory hallucinations; no delusions; no shortness of breathHyperlipidemiaReported bypatient.Control:usually well controlled; improving; at goal Compliance:compliant; compliant with diet; exercises Complications:no coronary artery disease; no peripheral artery disease; no cardiovascular disease ELIZABETH Luna [address] [facility] [facility] [address], [place], [address], [facility] 06/06/2023 20:15:05 OBGyn Episode No OBEpisode recorded.
--- OUTSIDE RECORDS SUMMARY | 2024-11-28 08:17 | XMS_ITS | Continuity of Care Document ---
Author Organization [facility] Address [address] [place] [address] [facility] [address] [place] [address] Phone Care Team Providers Care Real Estate Recruiter Name Role Phone Tania Aleman Unavailable Unavailable Advance Directives Directive Yes / No Effective Date File Name No Information Encounters Encounter Description Practice Location Reason(s) For Visit Diagnoses Date Provider Providers Copied on Encounter [facility], [address] [place] [address] [address], [place], [place], [id number], [place] tel:[phone] [facility] No Information [phone] [place]. [address] , [address], [place], [address], [place]. tel:[phone] Family History Family Member Type Diagnosis Age At Onset No Information Payers Payer name Insurance type Covered democrat ID Authoriza tion(s) [employer] [id number] Social History Type Description Quantity Date Captured Comments Sex Female Smoking Status No Information Chief Complaint And Reason For Visit No Information Reason For Referral Reason For Referral No Information History Of Present Illness Encounter Date Complaint History Of Prese nt Illness No Information Functional Status Date Functional Assessmen t No Information Instructions Date Instruction Additional Infor mation No Information Assessments Type Assessment Date No Information Patient Care Teams Name Effective Dates (start - stop) Status Members No Information
--- OUTSIDE RECORDS SUMMARY | 2024-11-28 08:17 | XMS_ITS | Clinical Summary ---
Author Organization [facility] Address [address] [facility] [place] [address] Care Team Providers Care Valve Inspector Name Role Phone Domitila Langford Primary Care Pr ovider Source Comments [facility],non-owned Affiliates and Associated Physician Practices is amultiple site organization consisting of ambulatory clinics and hospital sitesin [place], [place], [place] and [place]. This disclosure is being madepursuant to the Care Everywhere program and may not contain all information available regarding this patient. Last updated 18.[facility] [employer] Social History Tobacco Use Types Packs/Day Years Used Date Smoking Tobacco: Never Assessed Sex and Gender Information Value Date Recorded Sex Assigned at Not on file Gender Identity Not on file Sexual Orientation Not on file Plan of Treatment Health Maintenance Due Date Last Done Comments BONE DENSITY TESTING 1954 COLOGUARD (AGES 45-75) - COL ON CA SCREENING 1954 COLON MONITORING 1954 COLONOSCOPY - COLON CA SCREENING 1954 CT COLONOGRAPHY - COLON CA SCREENING 1954 Colorectal Cancer Screening 1954 FIT - COLON CA SCREENING 1954 FLEX SIG - COLON CA SCREENING 1954 LIPID TESTING 1954 MAMMOGRAM 1954 MEDICARE AWV 12 MONTHS 1954 HEPATITIS C SCREENING 03/08/1972 DTAP/TDAP/TD VACCINES (1 - Tdap) 1973 PNEUMOCOCCAL VACCINE 50+ (1 of 1 - PCV) 2004 ZOSTER VACCINE (1 of 2) 2004 COVID-19 VACCINE ( - 2023-2 5 season) 2024 INFLUENZA VACCINE (#1) 2024 DEPRESSION SCREENING 09/07/2024 Respiratory Syncytial Virus (RSV) Vaccine Pt: or over 60 yrs (1 - 1-dose 75+ series) 2029 HEPATITIS B VACCINE Aged Out No longe r eligible based on patient's age to complete this topic HIB VACCINE Aged Out No longer eligi ble based on patient's age to complete this topic HPV VACCINE Aged Out No longer eligi ble based on patient's age to complete this topic MENINGOCOCCAL (Group B) VACC INE SHARED DECISION-MAKING Aged Out No longer eligibl e based on patient's age to complete this topic MENINGOCOCCAL GROUPS A/C/Y/W VACCINE Aged Out No longer eligible b ased on patient's age to complete this topic Care Teams Valve Inspector Relationship Specialty Start Date End Date Domitila Langford PA [address] [facility] [address] [place] [address] PCP - General 10/15/22
--- OUTSIDE RECORDS SUMMARY | 2024-11-28 08:17 | XMS_ITS | Data Portability ---
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 Plan of Treatment Reminders Order Date Submit Date Provider Last Modified By Organization Details Last Modified Time Details Appointments None recorded. Lab HbA1c (hemoglobi n A1c), blood 2023 [facility], [address], [place], [address], 4 09:50:48 insulin, serum 2023 024 [facility], [address], [place], [address], 4 09:50:48 hepatic function panel, serum 2023 024 [facility], [address], [place], [address], 4 09:50:48 BMP, serum or plasma 2023 024 [facility], [address], [place], [address], 4 09:50:48 lipid panel, serum 2023 024 DAVID [facility], [address], [place], [address], 5 11:43:[address] [facility], [address], [place], [address], 14:39:51 Procedures None recorded. Surgeries None recorded. Imaging None recorded. Medication Orders None recorded. Patient TargetsNo targets recorded. Patient Instructions Encounter Date Encounter Id Patient Instructions Last Modified By Organization Details Last Modified Time 03/31/2024 [id number] A healthy lifestyle: care instructions [email or web address] Not available 03/31/2024 12:42:46 Reason for Referral Referring Physician: Oanh Mcgrath, Internal Medicine, Encounter Date: 03/31/2024 Results Created Date Observation Date Name Description Value Unit Range Abnormal Flag Note LastModifiedBy Organization Detail LastModifiedTime Result Notes None recorded. Problems Name Problem SNOMED Code Status Onset Date Resolution Date Notes Provider Name and Address Organization Details Recorded Time Long-term drug therapy Active 2023 ELIZABETH Luna Attn: Eunice hinson,[address] [place], [address], [place] - [facility] 4 12:24:17 Obesity 142228562 Active 2023 ELIZABETH Luna Attn: Eunice hinson,[address] [place], [address], [place] [facility] 4 12:24:18 Body mass index 30+ - obesity 973774132 Active 2023 ELIZABETH Luna Attn: Eunice hinson,[address] [place], [address], [place] [facility] 4 12:24:19 Chronic insomnia 456952975 Active 2023 ELIZABETH Luna Attn: Eunice g,[address] [place], [address], [place] [facility] 4 12:24:20 Generalized anxiety disorder 49583417 Active 2023 ELIZABETH Luna Attn: Eunice hinson,[address] [place], [address], [place] [facility] 4 12:24:23 Hyperlipidemia 72313196 Active 2023 ELIZABETH Luna Attn: Eunice hinson,[address] [facility], [place], [address], [facility] 4 12:24:25 Leukocytosis 422266282 Active 2023 ELIZABETH Luna Attn: Eunice hinson,[address] [facility], [place], [address], [facility] 4 12:24:26 Prediabetes 122717619 Active 2023 ELIZABETH Luna Attn: Eunice hinson,[address] [facility], [place], [address], [facility] 4 12:24:28 Age related macular degeneration 989493991 Active 2023 ELIZABETH Luna Attn: Eunice hinson,[address] [facility], [place], [address], [facility] 4 12:36:01 Psoriatic arthritis 510398591 Active 2023 ELIZABETH Luna Attn: Eunice hinson,[address] [facility], [place], [address], [facility] 4 20:35:51 Problem Notes None recorded. Procedures Surgical History Date Name Laterality Status Provider Name and Address Organization Details Recorded Time Knee Surgery completed Dalton Nevarez MA [facility] 03/31/2024 12:00:15 cystoscopy completed Dalton Nevarez MA [facility] 03/31/2024 12:00:27 Imaging Results None recorded. Procedure Notes None recorded. Medical Equipment None Reported. Allergies No known drug allergies Medications Name Sig Start Date Stop Date Status Note LastModified by Organization Details LastModified Time atorvastatin 40 mg tablet TAKE 1 TABLET DAILY active Not Available Not Available No t Available lorazepam 0.5 mg tablet Take 1 tablet twice a day by oral route as needed. active Not Available Not Available No t Available zolpidem 10 mg tablet Take 1 tablet every day by oral route at bedtime. active Not Available Not Available No t Available amoxicillin 875 mg-potassium clavulanate 125 mg tablet TAKE 1 TABLET BY MOUTH EVERY 12 HOURS FOR 10 DAYS active Not Available Not Available No t Available escitalopram 20 mg tablet TAKE 1 TABLET DAILY active Not Available Not Available No t Available nitrofuranto in monohydrate/ macrocrystal s 100 mg capsule TAKE 1 CAPSULE BY MOUTH EVERY 12 HOURS 03/31 completed Not Available Not Available Not Available Enbrel SureClick 50 mg/mL (1 mL) subcutaneous pen injector active Not Available Not Available Not Available ICaps AREDS2 active Not Available Not Available Not Available Vitals Date Recorded Body weight Body mass index (BMI) Body height Respiratory rate Oxygen saturation Oxygen saturation in Arterial blood by Pulse oximetry Heart rate Systolic blood pressure Diastolic blood pressure Provider Name and Address Organization Details Last Updated DateTime 4 14642.1 g 31.6 kg/m2 167.64 cm 20 /min 96 % 96 % 81 /min 118 mm[Hg] 72 mm[Hg] Dalton Nevarez MA [facility] 12:02:47 Date Recorded Systolic blood pressure Diastolic blood pressure Systolic blood pressure Diastolic blood pressure Provider Name and Address Organization Details Last Updated DateTime 03/31/2024 110 mm[Hg] 80 mm[Hg] 110 mm[Hg] 80 mm[Hg] ELIZABETH Luna Attn: ,[address] [place], [address] , [facility] 12:43:47 Social History Question Answer Notes LastModified by Organizat ion Details LastModified Time Tobacco Smoking Status Former Smoker quit 1 mo ago Dalton Nevarez MA null, [facility] 03/31/2024 11:59:32 Do You Have An Advance Directive? Yes Information not available 03/31/2024 What Is Your Level Of Alcohol Consumption? None Information not available 03/31/2024 Are You Blind Or Do You Have Difficulty Seeing? No Readers Information not available 03/31/2024 What Is Your Level Of Caffeine Consumption? Moderate Coffee LOTS Information not available 03/31/2024 In The 14 Days Before Symptom Onset, Have You Had Close Contact With A Laboratory-confir med COVID-19 While That Case Was Ill? No Information not available 03/31/2024 In The 14 Days Before Symptom Onset, Have You Had Close Contact With A Person Who Is Under Investigation For COVID-19 While That Person Was Ill? No Information not available 03/31/2024 Have You Been To An Area Known To Be High Risk For COVID-19? No Information not available 03/31/2024 Are You Deaf Or Do You Have Serious Difficulty Hearing? No Information not available 03/31/2024 What Type Of Diet Are You Following? REGULAR Information not available 03/31/2024 Are There Any Guns Present In Your Home? No Information not available 03/31/2024 What Was The Date Of Your Most Recent Tobacco Screening? 03/31/2024 Information not available 03/31/2024 What Is Your Current Pack Years? 20-29packyea rs Information not available 03/31/2024 Do You Use Your Seat Belt Or Car Seat Routinely? Yes Information not available 03/31/2024 Do You Have Smoke And Carbon Monoxide Detectors In Your Home? Yes Information not available 03/31/2024 How Much Tobacco Do You Smoke? No Information not available 03/31/2024 Do You Feel Stressed (tense, Restless, Nervous, Or Anxious, Or Unable To Sleep At Night)? [id number] Information not available 03/31/2024 Do You Use Any Illicit Or Recreational Drugs? No Information not available 03/31/2024 Has Tobacco Cessation Counseling Been Provided? Yes Information not available 03/31/2024 On What Date Was Tobacco Cessation Counseling Provided? 03/31/2024 Information not available 03/31/2024 Do You Or Have You Ever Used Any Other Forms Of Tobacco Or Nicotine? No Information not available 03/31/2024 Sex: Female Functional Status Question Answer Note LastModified by Organizat ion Details LastModified Time Are you able to care for yourself? Yes Information not available 03/31/2024 What is your exercise level? Occasional Information not available 03/31/2024 Mental Status None recorded. Family History Relationship Description Onset Age of this Age Resolved Age Notes LastModified by Organization Details LastModified Time Father Alcohol abuse [email or web address] Not available 2023 12:54:59 Father Dementia [email or web address] Not availabl e 03/31/2024 12:55:07 Father Hypertensive disorder tcarterma Not available 2023 12:55:12 Father Kidney disease tcarterma Not available 2023 12:55:31 Father Malignant tumor of prostate tcarterma Not available 2023 12:55:54 Mother Osteoporosis tcarterma Not avai lable 03/31/2024 12:55:37 Brother Osteoporosis tcarterma Not los ilable 03/31/2024 12:55:46 Medical History Condition Response Anxiety Disorder Y Depression Y Gynecological History Statement/Question Response Menses Monthly N Current Control Method None Obstetrics History GPAL:G 0 P 0 0 0 0 Past Encounters Encounter ID Performer Location Encounter Start Date Encounter Closed Date Diagnosis/Indication Diagnosis SNOMED-CT Code Diagnosis ICD10 Code Diagnosis Note [id number] ELIZABETH Luna [facility] [place] [address] [place] [address] 03/31/2024 11:24:04 03/31/2024 13:54:15 Body mass index 30+ - obesity 089268718 Z68.31 Obesity 861219652 E66.8 Prediabetes 268063754 R7 3.03 A1c in February was 6.3%. Patient has been doing low carb/keto and has already lost 20+ lb. She is due again for labs in August. Leukocytosis 237704617 D 72.829 Repeat white blood cell count is now at 12.8. She does have a remote history a few years back of seeing Dr. Holt for Hematology and he did not seem to be too concerned about her labs but she would like to have a 2nd opinion consult with a local hematologi st. Hyperlipidemia 07631751 E78.5 Continue atorvastat in 40 mg daily and repeat fasting labs in August Generalize d anxiety disorder 83611486 F41.1 Continue Lexapro 20 mg daily and lorazepam 0.5 mg twice daily p.r.n. patient is stable with no acute complaints . Chronic insomnia 8874724 04 F51.04 Continue zolpidem 10 mg p.o. q.h.s.. Patient tolerates well without any adverse side effects. Long-term drug therapy 037437055 Z79.899 Age relate d macular degeneration 305315419 H35.30 Patient is stable and on eye supplement therapy. Psoriatic arthritis [address] Mata is her rheumatolo gist and she follows routinely with her for management of her Enbrel and lab work. Health Concerns Section Related Observation LastModified by Organization Detai ls LastModified Time None Recorded Concern Status LastModified by Organization Details LastModified Time None Recorded Advance Directives Directive Y: Payers Encounter Date Sequence Insurance Name Policy Number Policy Feliz Covered Member ID Feliz Member ID Guarantor Name 03/31/2024 1 [place] Lida Rader [id number] Lida Rader 03/31/2024 2 [facility] PRIOR TO 09/07/2024 - [employer] () Canleo Katarzyna [id number] Lida Rader Notes Date Note Type Note Provider Name and Address Organization Details Recorded Time 4 text/html Anxiety/DepressionReported bypatient.Notes:Patient is taking lorazepam 0.5 mg twice daily as needed and Lexapro 20 mg daily. She does have a significant amount of stress with family dynamics and strained relationships. She is doing the best that she can.HyperlipidemiaReported bypatient.Notes:Patient is taking atorvastatin 40 mg daily and labs are updatedInsomniaReported bypatient.Notes:Patient takes zolpidem 10 mg at night and is stable Psoriatic arthritis-patient follows with Dr. Mata in [place] and is stable on Enbrel injections Macular degeneration-patient is following with her eye doctor routinely and continues areds2 Leukocytosis history-patient has updated CBC to review today ELIZABETH Luna Attn: Accounting,[address] [facility], [place], [address], [facility] 03/31/2024 20:36:34 OBGyn Episode No OBEpisode recorded.
== END 2024-11-28 08:03 | disposition home or self-care (01) ==
LOC: ANHIMG 08:05
PROVIDERS: PCP Physician Assistant; Visit Provider Physician Assistant
DX: Z12.31 Encounter for screening mammogram for malignant neoplasm of breast (principal)
CPT/HCPCS: 77063; 77067